=== PATIENT | female | born 1990 | race Caucasian/White ===

== ENCOUNTER 2017-04-29 15:01 | Inpatient (IN) | payer BC ==
--- NOTE | 2017-04-29 15:19 | P.HPOB ---
History of Present Illness H&P Date: 04/29/17 Chief Complaint: Contractions This is a 27-year-old 2 para 1001 woman who presents at 39-5/7 weeks gestation in advanced active labor. Her care has been on at [facility]. She reports onset of contractions approximately 24 hours ago she was seen and labor was ruled out last night however her contractions continued. She denies leakage of fluids or vaginal bleeding. She was transported the hospital by EMS and upon presentation in labor and delivery triage was found to be 9+ centimeters dilated with a bulging bag of fluids. She reports her obstetric history is significant for previous low transverse section done for nonreassuring heart tones 8 years ago. She says this has been uncomplicated and she is only taking medications for anemia and asthma. record is not available. Review of Systems All systems: negative Past Medical History Past Medical History: Asthma Past Surgical History: Section Smoking Status: Current every day smoker Past Alcohol Use History: None Reported Past Drug Use History: None Reported Medications and Allergies Home Medications Medication Instructions Recorded Confirmed Type Albuterol Inhaler [Ventolin Hfa 04/29/17 History Inhaler] Allergies Allergy/AdvReac Type Severity Reaction Status Date / Time No Known Allergies Allergy Verified 04/29/17 15:17 Exam Targeted physical exam is performed. This is a actively laboring, uncomfortable -appearing female. Fundal height is consistent with a term gestation. On pelvic examination the cervix is 9+ centimeters dilated in the 100% effaced. Artificial rupture of membranes is undertaken and clear fluid is noted. Vertex presentation. heart tones are reassuring by external monitoring. She is jah spontaneously every 1-3 minutes. Assessment and Plan (1) Spontaneous onset of labor Status: Acute (2) 39 weeks gestation of Status: Acute (3) History of Status: Acute (4) Asthma Status: Acute (5) Tobacco abuse Status: Acute Plan: 27-year-old 2 para 1 woman who presents on in advanced active labor, 9+ centimeters dilated. care at an outlying facility. History of previous low transverse section was planning for vaginal after C- section. Group B strep status is unknown as is blood type. Attempt to obtain records. Nursery notified of impending delivery.
[2017-04-29] MEDS ORDERED: LIDOCAINE 1% (PF) 10 MG/ML (30 ML SDV) SQ PRN (16:03)
[2017-04-29] MEDS ORDERED: METHYLERGONOVINE 0.2 MG/ML 1 ML AMP IM PRN (16:03)
[2017-04-29] MEDS ORDERED: OXYTOCIN 10 UNIT/ML 1 ML VIAL IM PRN (16:03)
[2017-04-29] MEDS ORDERED: TERBUTALINE 1 MG/ML VIAL SQ PRN (16:03)
[2017-04-29] MEDS ORDERED: CARBOPROST TROMETHAMINE 250 MCG/ML 1 ML AMP IM PRN (16:03)
[2017-04-29] MEDS: LACTATED RINGERS 1,000 ML IV SCH (16:09)
[2017-04-29] MEDS ORDERED: OXYTOCIN 20 UNITS/1000 ML NS 1,000 ML IV SCH ×2 (16:15→16:30)
[2017-04-29] MEDS ORDERED: BENZOCAINE/MENTHOL SPRAY 1 GM/SPRAY AEROSOL TOPICAL PRN (16:25)
[2017-04-29] MEDS ORDERED: ZOLPIDEM 5 MG TAB PO PRN (16:25)
[2017-04-29] MEDS ORDERED: HYDROCORTISONE 2.5% RECTAL CREAM 30 GM TUBE RECTAL PRN (16:25)
[2017-04-29] MEDS ORDERED: diphenhydrAMINE 50 MG CAP PO PRN (16:25)
[2017-04-29] MEDS ORDERED: diphenhydrAMINE 50 MG/ML 1 ML VIAL IVP PRN ×2 (16:25)
[2017-04-29] MEDS ORDERED: LANOLIN CREAM 5 GM TUBE TOPICAL PRN (16:25)
[2017-04-29] MEDS ORDERED: diphenhydrAMINE 25 MG CAP PO PRN (16:25)
[2017-04-29] MEDS ORDERED: SIMETHICONE 80 MG CHEWABLE PO PRN (16:25)
[2017-04-29] MEDS ORDERED: WITCH HAZEL 1 EACH MED..PAD TOPICAL PRN (16:25)
--- NOTE | 2017-04-29 16:25 | P.PROBDLV ---
Vaginal Delivery Note - . Vaginal Delivery Note: Findings: Male infant in the occiput anterior position with Apgars of 9 at 1 minute and 9 at 5 minutes weighing 7 lbs. 1 oz., 3210 g. Intact, three-vessel cord placenta. No perineal lacerations. Bilateral labial abrasions. Delivery summary: This is a 27-year-old 2 para 1001 woman who presented at 39-5/7 weeks gestation in advanced active labor. [facility] She [facility] by [facility] and upon arrival was 9+ centimeters dilated. She underwent artificial rupture of membranes. Her contractions were irregular however she did ultimately become completely dilated and commenced pushing. Her contractions were every 5 minutes. She did push to at which time she was repositioned, prepped and draped in the dorsal modified lithotomy position. With additional maternal effort the head delivered from the left occiput anterior position. Nose and mouth were bulb suctioned on the perineum. Anterior followed by the posterior shoulders were delivered without difficulty and the rest the was delivered onto the field. Nose and mouth were further bulb suctioned and the was placed on the maternal abdomen where the cord was clamped and cut. Apgars were 9 at 1 minute and 9 at 5 minutes. An intact, three-vessel cord placenta was expressed in the vagina, cervix and labial were further inspected. No active bleeding was noted from the labial abrasions. The uterus was massaged and was noted to be firm at the level of the umbilicus. EBL was approximately 100 mL's. Both mother and infant were doing well post delivery in the room.
[2017-04-29] MEDS: IBUPROFEN 600 MG TAB PO PRN ×2 (16:48→22:53)
[2017-04-29 17:29] VITALS: BMI 35.4
[2017-04-29 17:55] LABS: Basophils % (A) 0 %; CH 29.2; CHCM 33.7; Eosinophils % (A) 0 %; HCT 33.6 % (34.0-46.0); HDW 2.63; HGB 11.3 gm/dL (11.4-16.0); Luc # (Auto) 0.39; Luc % (Auto) 1; Lymphocytes # (A) 1.2 k/uL (1.0-4.8); Lymphocytes % (A) 4 %; MCH 29.2 pg (25.0-35.0); MCHC 33.6 g/dL (31.0-37.0); MCV 86.9 fL (80.0-100.0); Mean Platelet Volume 7.5; Monocytes # (A) 1.6 k/uL (0-1.0); Monocytes % (A) 6 %; Neutrophils # (A) 24.5 k/uL (1.3-7.7); RBC 3.87 m/uL (3.80-5.40); WBC (Perox) 28.51
[2017-04-29 17:57] LABS: WBC 27.8 k/uL (3.8-10.6)
[2017-04-29 18:03] LABS: Neutrophils % (A) 88 %
[2017-04-29] MEDS: ACETAMINOPHEN TAB 325 MG TAB PO PRN (19:39)
[2017-04-29] MEDS: SENNOSIDES-DOCUSATE SODIUM 1 EACH TAB PO SCH (22:34)
[2017-04-30] MEDS: LACTATED RINGERS 1,000 ML IV SCH (00:33)
[2017-04-30] MEDS: ACETAMINOPHEN TAB 325 MG TAB PO PRN ×2 (03:16→12:50)
[2017-04-30 06:53] LABS: CHCM 33.3; HCT 29.3 % (34.0-46.0); HDW 2.62; MCH 29.9 pg (25.0-35.0); MCHC 34.2 g/dL (31.0-37.0); MCV 87.4 fL (80.0-100.0); Mean Platelet Volume 7.6; RBC 3.35 m/uL (3.80-5.40); RDW 14.1 % (11.5-15.5); WBC 18.7 k/uL (3.8-10.6); WBC (Perox) 19.81
[2017-04-30] MEDS: SENNOSIDES-DOCUSATE SODIUM 1 EACH TAB PO SCH (07:30)
[2017-04-30] MEDS: IBUPROFEN 600 MG TAB PO PRN ×2 (07:30→15:14)
[2017-04-30 08:43] LABS: Add Differential Manual Differential
[2017-04-30 08:46] LABS: Nucleated Red Blood Cells 0 /100 WBC (0-0); Total Cells Counted 100
[2017-04-30 08:49] LABS: Manual Review Performed; RBC Morphology Normal
--- NOTE | 2017-04-30 09:32 | P.PNOBGVD ---
Subjective - Subjective Principal diagnosis: day #1 status post normal spontaneous vaginal delivery Interval history: She is complaining of some back pain however this is improving. Denies fevers or chills. Lochia is moderate. Ambulate and voiding without difficulty. She had a critical value with a white blood cell count of greater than 27,000 last night. She was afebrile at that time. This is decreased significantly this morning. Patient reports: Reports appetite normal, Reports voiding normally, Reports pain well controlled, Reports ambulating normally Traer: doing well Objective - Latest Vital Signs Latest vital signs: Vital Signs Temp Pulse Resp BP Pulse Ox 04/30/17 07:43 98.3 F 72 17 120/72 04/30/17 03:22 98 F 79 18 136/75 04/30/17 00:00 98.2 F 94 18 124/62 98 04/29/17 20:00 98.4 F 98 18 118/54 97 04/29/17 18:15 98.5 F 83 16 117/63 04/29/17 17:45 94 16 108/59 04/29/17 17:15 83 16 114/65 04/29/17 17:00 86 16 04/29/17 16:45 86 16 122/59 04/29/17 16:30 97.3 F L 93 16 116/56 04/29/17 15:05 97.9 F 88 16 115/57 Intake and Output 04/29/17 04/30/17 04/30/17 22:59 06:59 14:59 Intake Total 2.2 600 Output Total 100 Balance -97.8 600 Intake: Intake, IV Titration 2.2 Amount Oxytocin 20 Units/1000 ml 2.2 Ns 1,000 ml @ 1 MILLIUNIT/MIN 3 mls/hr IV .Q24H KIMMY Rx#:[id number] Oral 600 Output: Estimated Blood Loss 100 Other: # Voids 1 1 Weight 90.718 kg - Exam Extremities: Present: normal Abdomen: Present: normal appearance, soft. Absent: tenderness Uterus: Present: normal, firm. Absent: tenderness - Labs Labs: Abnormal Lab Results - Last 24 Hours (Table) 04/29/17 04/30/17 Range/Units 17:26 06:16 WBC 27.8 H* 18.7 H (3.8-10.6) k/uL RBC 3.35 L (3.80-5.40) m/uL Hgb 11.3 L 10.0 L (11.4-16.0) gm/dL Hct 33.6 L 29.3 L (34.0-46.0) % Neutrophils # 24.5 H (1.3-7.7) k/uL Neutrophils # (Manual) 15.3 H (1.3-7.7) k/uL Monocytes # 1.6 H (0-1.0) k/uL Assessment and Plan (1) Spontaneous onset of labor Current Visit: Yes Status: Acute Code(s): NLF0016 - SNOMED Code(s): 44530616 (2) 39 weeks gestation of Current Visit: Yes Status: Acute Code(s): Z3A.39 - 39 WEEKS GESTATION OF SNOMED Code(s): 11647150 (3) History of Current Visit: Yes Status: Acute Code(s): Z98.891 - HISTORY OF UTERINE SCAR FROM PREVIOUS SURGERY SNOMED Code(s): 042609826 (4) Asthma Current Visit: Yes Status: Acute Code(s): J45.909 - UNSPECIFIED ASTHMA, UNCOMPLICATED SNOMED Code(s): 698882119 (5) Tobacco abuse Current Visit: Yes Status: Acute Code(s): Z72.0 - TOBACCO USE SNOMED Code( s): 432432415 (6) Elevated white blood cell count Current Visit: Yes Status: Acute Code(s): D72.829 - ELEVATED WHITE BLOOD CELL COUNT, UNSPECIFIED SNOMED Code(s): 979587914 (7) Normal spontaneous vaginal delivery Narrative/Plan: 27-year-old 2 now para 2 woman day #1 status post normal spontaneous vaginal delivery. care at an [facility] facility. We do not have her group B strep status and she had a significantly elevated maternal white blood cell count. She has no signs of localizing infection and this has decreased today however on the is currently being monitored for possible infection. Therefore discharge home tomorrow. Current Visit: Yes Status: Acute Code(s): O80 - ENCOUNTER FOR FULL-TERM UNCOMPLICATED DELIVERY SNOMED Code(s): 20699392
[2017-04-30] MEDS ORDERED: MEASLES-MUMPS-RUBELLA VACC/PF 12,500 UNIT/0.5 ML VIAL SQ ONE (12:17)
[2017-04-30 16:58] VITALS: BP 113/73; PULSE 78; RESP 16; TEMP 98.5
== END 2017-04-30 17:38 | disposition home or self-care (01) | DRG 775 ==
LOC: 4FBP 15:01
PROVIDERS: ADMIT Obstetrics & Gynecology; ATTEND Obstetrics & Gynecology
PROC: 10E0XZZ Delivery of Products of Conception, External Approach (ICD-10-PCS; principal; 2017-04-29)
PROC: 10907ZC Drainage of Amniotic Fluid, Therapeutic from Products of Conception, Via Natural or Artificial Opening (ICD-10-PCS; 2017-04-29)
PROC: 3E0134Z Introduction of Serum, Toxoid and Vaccine into Subcutaneous Tissue, Percutaneous Approach (ICD-10-PCS; 2017-04-30)
DX: O34.211 Maternal care for low transverse scar from previous cesarean delivery (principal); O99.12 Other diseases of the blood and blood-forming organs and certain disorders involving the immune mechanism complicating childbirth; J45.909 Unspecified asthma, uncomplicated; N85.8 Other specified noninflammatory disorders of uterus; D72.829 Elevated white blood cell count, unspecified; O99.019 Anemia complicating pregnancy, unspecified trimester; O99.52 Diseases of the respiratory system complicating childbirth; O99.334 Smoking (tobacco) complicating childbirth; M54.9 Dorsalgia, unspecified; O99.02 Anemia complicating childbirth; F17.200 Nicotine dependence, unspecified, uncomplicated; Z3A.39 39 weeks gestation of pregnancy; Z37.0 Single live birth; Z79.899 Other long term (current) drug therapy; Z23 Encounter for immunization
CPT/HCPCS: 85025; 88307; 90707; 99213

== ENCOUNTER 2019-07-12 07:59 | Day surgery (SDC) | payer BC, OTHER ==
[2019-07-10 15:07] VITALS: BMI 32.3
[~2019-07-12 07:59] MED LIST: DEXAMETHASONE SOD PHOSPHATE 10 MG/ML 1 ML VIAL IV ONE; HEPARIN SODIUM,PORCINE 5,000 UNIT/ML 1 ML VIAL SQ ONE; KETOROLAC 30 MG/ML 1 ML VIAL IVP SCH; LIDOCAINE 1% 20 ML VIAL (10MG/ML) FOR IV START INTRADERMA PRN; METOCLOPRAMIDE 5 MG/ML 2 ML VIAL IVP PRN; MIDAZOLAM 2 MG/2 ML VIAL IV PRN; ONDANSETRON 4 MG/2 ML VIAL IVP ONE; SCOPOLAMINE 1.5MG/72HR PATCH TRANSDERM ONE
[2019-07-12] MEDS: LACTATED RINGERS 1,000 ML IV SCH ×2 (08:33→09:22)
--- NOTE | 2019-07-12 09:05 | P.GSHP ---
History of Present Illness H&P Date: 07/12/19 Chief Complaint: Right upper quadrant pain This a 29-year-old female who presents today for laparoscopic cholecystectomy. Patient has completed 200 quadrant pain when eating greasy or fried foods. Patient's workup found have evidence of cholecystitis. Past Medical History Past Medical History: Asthma History of Any Multi-Drug Resistant Organisms: None Reported Past Surgical History: Section Past Anesthesia/Blood Transfusion Reactions: No Reported Reaction Smoking Status: Current every day smoker - Past Family History Father Additional Family Medical History / Comment(s): leukemia Mother Family Medical History: Cancer Additional Family Medical History / Comment(s): breast, cervical Medications and Allergies Home Medications Medication Instructions Recorded Confirmed Type Albuterol Inhaler [Ventolin Hfa 1 puff INHALATION Q4H PRN 04/29/17 07/12/19 History Inhaler] Allergies Allergy/AdvReac Type Severity Reaction Status Date / Time No Known Allergies Allergy Verified 07/12/19 08:20 Surgical - Exam Vital Signs Temp Pulse Resp BP Pulse Ox 98.6 F 85 16 118/70 98 07/12/19 08:20 07/12/19 08:20 07/12/19 08:20 07/12/19 08:20 07/12/19 08:20 - General well developed, well nourished, no distress - Eyes PERRL - ENT normal pinna - Neck no masses - Respiratory normal expansion - Cardiovascular Rhythm: regular - Abdomen Abdomen: soft, non tender Assessment and Plan Assessment: Right upper quadrant pain Cholecystitis We'll perform laparoscopic cholecystectomy.
[2019-07-12] MEDS ORDERED: fentaNYL (PF) 50 MCG/ML 2 ML AMP ONE (09:20)
[2019-07-12] MEDS ORDERED: SUCCINYLCHOLINE CHLORIDE 100 MG/5 ML SYR IV ONE (09:20)
[2019-07-12] MEDS ORDERED: PROPOFOL 10 MG/ML 20 ML VIAL IV ONE (09:20)
[2019-07-12] MEDS ORDERED: KETOROLAC 30 MG/ML 1 ML VIAL ONE (09:20)
[2019-07-12] MEDS ORDERED: HYDROmorphone (PF) 1 MG/ML ONE (09:20)
[2019-07-12] MEDS ORDERED: LIDOCAINE 1% INJ 10MG/ML (20 ML MDV) ONE (09:20)
[2019-07-12] MEDS ORDERED: NEOSTIGMINE 1 MG/ML 10 ML VIAL ONE (09:20)
[2019-07-12] MEDS ORDERED: ROCURONIUM BROMIDE 10 MG/ML 10 ML VIAL IV ONE (09:20)
[2019-07-12] MEDS ORDERED: MIDAZOLAM 2 MG/2 ML VIAL ONE (09:20)
[2019-07-12] MEDS ORDERED: GLYCOPYRROLATE 0.2 MG/ML 2 ML VIAL ONE (09:20)
[2019-07-12] MEDS ORDERED: BUPIVACAINE (PF) 0.25% 30 ML VIAL SQ ONE (09:52)
[2019-07-12] MEDS ORDERED: LACTATED RINGERS 1,000 ML IV ONE (10:10)
[2019-07-12] MEDS: HYDROmorphone 0.5 MG/0.5 ML SYRINGE IVP PRN ×2 (10:16→10:45)
[2019-07-12 10:18] VITALS: TEMP 97
[2019-07-12] MEDS ORDERED: ONDANSETRON 4 MG/2 ML VIAL IVP ONE (10:20)
--- NOTE | 2019-07-12 11:12 | P.OP ---
Date of Procedure: 07/12/19 Preoperative Diagnosis: Cholecystitis Postoperative Diagnosis: Cholecystitis Procedure(s) Performed: Laparoscopic cholecystectomy Anesthesia: IRENE Surgeon: Frankie Morrell Pathology: other (Gallbladder) Condition: stable Disposition: PACU Description of Procedure: The patient was placed on the operating table. The patient received a general endotracheal tube anesthesia. The patients abdomen was prepped and draped in the usual sterile fashion. Through an infraumbilical stab incision, the fascia of the anterior abdominal wall was grasped with a pair of Kochers and then the Veress needle was placed in the peritoneal cavity. Position of the Veress needle was confirmed with positive drop test. The abdomen was then insufflated. After adequate insufflation, the 10 mm trocar was placed in the peritoneal cavity. Following this the laparoscope was placed in the peritoneal cavity. The patient was placed in the head-up, right side up position and then a 5 mm trocar was placed in the right lateral and right subcostal position under direct visualization. A 8 mm trocar was placed in the epigastric position. The gallbladder was grasped in the fundus and infundibulum. Traction on the gallbladder was placed in the lateral and the cephalad positions. The triangle of Calot was visualized.. The cystic duct was bluntly dissected until the union of the cystic duct and common bile duct was seen. A critical view of safety was achieved. The cystic duct was then divided and sealed with the Harmonic scissors. A PDS Endoloop was then placed throughout the cystic duct stump. The cystic artery divided and sealed with the Harmonic scissors. The gallbladder was then removed from the liver bed using Harmonic scissors. The gallbladder was then extracted through the epigastric port site. Operative field was checked for any bleeding spots and Harmonic scissors was used to coagulate the liver bed. The abdomen was irrigated. The trocars were removed. The skin was closed using interrupted 3-0 Vicryl suture. Dermabond dressing were applied. The patient tolerated the procedure well.
[2019-07-12] MEDS ORDERED: HYDROcodone/APAP 5-325MG 1 EACH TAB PO ONE (11:39)
[2019-07-12 11:43] VITALS: RESP 16
[2019-07-12 12:06] VITALS: BP 99/55; PULSE 72
== END 2019-07-12 12:52 | disposition home or self-care (01) ==
LOC: OR 07:59
PROVIDERS: ATTEND Surgery
DX: K81.1 Chronic cholecystitis (principal); J45.909 Unspecified asthma, uncomplicated; F17.200 Nicotine dependence, unspecified, uncomplicated; Z80.6 Family history of leukemia; Z80.3 Family history of malignant neoplasm of breast; Z80.49 Family history of malignant neoplasm of other genital organs
CPT/HCPCS: 81025; 88304; 47562; J2250; J1644; J1100; J2710; J0690; J2405; J2001; J3010; J1885; J1170 ×2; J0330; J2704